=== PATIENT | female | born 1955 | race African-American/Black ===

== ENCOUNTER 2020-02-03 15:24 | Emergency (ER) | payer OTHER ==
[~2020-02-03] VITALS: Ht 170.2 cm; Wt 89.0 kg
[2020-02-03] MEDS ORDERED: TRAMADOL 50MG TABLET PO ONE (16:30)
[2020-02-03 16:51] LABS: BASOPHILS % 1.1 % (0.0-2.0); HEMATOCRIT. 38.1 % (36.0-48.0); HEMOGLOBIN. 12.7 g/dL (12.0-16.0); LYMPHOCYTES % 29.3 % (20.0-50.0); MEAN CORPUSCULAR HEMOGLOBIN 28.4 pg (28.0-32.0); MEAN CORPUSCULAR VOLUME 84.9 fL (81.0-99.0); MEAN PLATELET VOLUME 8.6 fl (7.4-10.4); MONOCYTES % 6.4 % (2.0-8.0); NEUTROPHILS % 59.2 % (40.0-76.0); PLATELET 304 x1000/uL (130-400); RED BLOOD CELL COUNT 4.48 mill/uL (4.2-5.4); RED CELL DISTRIBUTION WIDTH 14.3 % (11.6-14.6)
[2020-02-03 16:53] LABS: CLARITY URINE CLEAR (CLEAR); COLOR URINE YELLOW (YELLOW); KETONES URINE NEGATIVE (NEGATIVE); LEUKOCYTE ESTERASE URINE TRACE (NEGATIVE); NITRITE URINE NEGATIVE (NEGATIVE); OCCULT BLOOD URINE NEGATIVE (NEGATIVE); PROTEIN URINE NEGATIVE (NEGATIVE); UROBILINOGEN URINE 0.2 E.U./dL (0.2-1.0)
[2020-02-03 16:58] LABS: CHLORIDE 107 mEq/L (98-107)
[2020-02-03 17:01] LABS: PROTHROMBIN TIME 10.1 sec (9.6-11.0)
[2020-02-03 17:06] LABS: CREATINE KINASE 141 IU/L (26-192)
[2020-02-03 17:09] LABS: CREATINE KINASE MB FRACTION < 1.0 ng/mL (0.5-3.6)
[2020-02-03] MEDS ORDERED: KETOROLAC 30MG/ML VIAL IV ONE (17:30)
[2020-02-03 19:45] VITALS: BP 127/78
== END 2020-02-03 20:00 | disposition home or self-care (01) ==
LOC: ER 15:24
DX: S09.8XXA Other specified injuries of head, initial encounter (principal); M54.2 Cervicalgia; M25.512 Pain in left shoulder; M25.532 Pain in left wrist; I10 Essential (primary) hypertension; F41.9 Anxiety disorder, unspecified; Z88.0 Allergy status to penicillin; Z88.1 Allergy status to other antibiotic agents; Z88.8 Allergy status to other drugs, medicaments and biological substances; W01.0XXA Fall on same level from slipping, tripping and stumbling without subsequent striking against object, initial encounter; Y93.89 Activity, other specified; Y92.018 Other place in single-family (private) house as the place of occurrence of the external cause
CPT/HCPCS: 36415; 70450; 71045; 72070; 72125; 73030; 73110; 80053; 81003; 82550; 82553; 83690; 85025; 85610; 93005; 96374; 99285; J1885